=== PATIENT | male | born 1950 | race Caucasian/White ===

== ENCOUNTER 2023-02-21 18:35 | Emergency (ER) | payer BC ==
--- NOTE | 2023-02-21 19:52 | RAD REPORT ---
EXAM DESCRIPTION: CT - Thorax Wo Con - 02/21/2023 7:05 pm CLINICAL HISTORY: CHEST PAIN COMPARISON: No comparisons TECHNIQUE: Axial thin cut images of the chest were obtained without IV contrast. Multiplanar reforma ts were generated and reviewed. All CT scans are performed using dose optimization technique as appropriate and may include automated exposure control or mA/KV adjustment according to patient size. FINDINGS: No mass or infiltrate in the lung parenchyma. 7 millimeter subpleural right upper lobe nod ule on axial image 16. No pleural thickening. Trace bilateral pleural effusion. No pneumothorax. No abnormal mediastinal or hilar masses or lymphadenopathy seen. No significant pulmonary artery find ings. Assessment is limited in the absence of IV contrast. Mild fusiform dilation of the ascending th oracic aorta, measuring 4.2 cm in caliber. No chest wall mass or abnormal axillary lymphadenopathy. Evaluation of the solid abdominal structures reveals no suspicious findings. IMPRESSION: Trace bilateral pleural effusions. No other acute process within the chest. Incidentally noted 7 millimeter subpleural ovoid solid right upper lobe nodule. A follow-up CT is rec ommended in 6-12 months to ensure stability, per Fleischner society criteria.
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
[2023-02-21 20:37] VITALS: TEMP 98.2
[2023-02-21 20:39] VITALS: BP 133/88; O2SAT 98
== END 2023-02-21 20:12 | disposition home or self-care (01) ==
LOC: ER 18:35
DX: R07.89 Other chest pain (principal); R06.02 Shortness of breath; V47.5XXA Car driver injured in collision with fixed or stationary object in traffic accident, initial encounter; Z72.0 Tobacco use; Z88.0 Allergy status to penicillin; Z88.5 Allergy status to narcotic agent
CPT/HCPCS: 71250; 99283